=== PATIENT | male | born 1970 | race Caucasian/White ===

== ENCOUNTER 2019-10-12 07:27 | Outpatient (CLI) | payer OTHER, SELFPAY | END 2019-10-12 07:28 | disposition home or self-care (01) | LOC: ANHAUDIO 07:32 | PROVIDERS: Visit Provider Otolaryngology | DX: H81.13 Benign paroxysmal vertigo, bilateral (principal) | CPT/HCPCS: 92537; 92540; 92546; 92557; 92567 ==